=== PATIENT | male | born 1940 | race Caucasian/White ===

== ENCOUNTER 2021-09-15 15:00 | Observation (INO) | payer MEDICARE, BC ==
[2021-09-15] MEDS ORDERED: Aspirin 81 MG Tab.Chew PO ONE (15:15)
[2021-09-15] MEDS ORDERED: Nitroglycerin 0.4 MG Tab.SL SL ONE (15:18)
[2021-09-15 15:55] LABS: CHLORIDE,CL 98 mmol/L (98-107); SODIUM,NA 135 mmol/L (136-145)
[2021-09-15 16:13] LABS: ANION GAP 13.7 meq/L (7-15)
[2021-09-15] MEDS ORDERED: Iopamidol 755 Mg/ML 100 ML Bottle IVPUSH ONE (16:13)
[2021-09-15] MEDS ORDERED: Lidocaine 2% HCl 11 ML Jelly Filled Syringe ONE ×2 (17:58→18:10)
[2021-09-15] MEDS ORDERED: Acetaminophen 325 MG Tab PO PRN (18:11)
[2021-09-15] MEDS ORDERED: Furosemide 40 MG/4 ML VIAL IVPUSH ONE (18:12)
[2021-09-15] MEDS ORDERED: cefTRIAXone 1 GM in Sodium Chloride 0.9% 100 ML IV SCH (20:00)
[2021-09-15] MEDS: Apixaban 5 MG Tab PO SCH (20:20)
[2021-09-15] MEDS: Sodium Chloride 0.9% 10 ML Syringe FLUSH PRN ×3 (20:20→21:46)
[2021-09-15] MEDS ORDERED: Digoxin 250 MCG Tab PO ONE (20:34)
[2021-09-15] MEDS ORDERED: Azithromycin 500 MG in Sodium Chloride 0.9% 250 ML IV SCH (21:00)
[2021-09-16] MEDS ORDERED: Furosemide 40 MG/4 ML VIAL IVPUSH ONE ×2 (01:00→01:33)
[2021-09-16] MEDS ORDERED: Diltiazem IR 60 MG Tab PO ONE (01:23)
[2021-09-16] MEDS: Sodium Chloride 0.9% 10 ML Syringe FLUSH PRN ×2 (01:44→09:21)
[2021-09-16] MEDS: Apixaban 5 MG Tab PO SCH (07:30)
[2021-09-16 07:45] LABS: CHLORIDE,CL 97 mmol/L (98-107); SODIUM,NA 136 mmol/L (136-145)
[2021-09-16 07:47] LABS: ANION GAP 12.9 meq/L (7-15)
[2021-09-16] MEDS ORDERED: Lisinopril 5 MG Tab PO SCH (08:00)
[2021-09-16] MEDS ORDERED: Verapamil 120 MG Tab.ER PO SCH (08:00)
[2021-09-16] MEDS ORDERED: Fluticasone NASAL Spray 16 GM Bottle NASBOTH SCH (08:00)
[2021-09-16] MEDS ORDERED: Furosemide 20 MG/2 ML VIAL IVPUSH ONE ×2 (08:00→09:00)
[2021-09-16] MEDS ORDERED: Rivaroxaban 10 MG Tab PO SCH (18:00)
== END 2021-09-16 16:40 ==
LOC: LL.ED 15:00 → LL.MS 17:29
PROVIDERS: ADMIT Emergency Medicine; ATTEND Emergency Medicine
DX: R07.89 Other chest pain (principal); I11.0 Hypertensive heart disease with heart failure; M19.90 Unspecified osteoarthritis, unspecified site; G89.29 Other chronic pain; J98.11 Atelectasis; F32.A Depression, unspecified; I48.0 Paroxysmal atrial fibrillation; J96.01 Acute respiratory failure with hypoxia; M54.50 Low back pain, unspecified; J30.9 Allergic rhinitis, unspecified; I73.9 Peripheral vascular disease, unspecified; C61 Malignant neoplasm of prostate; E66.01 Morbid (severe) obesity due to excess calories; I50.43 Acute on chronic combined systolic (congestive) and diastolic (congestive) heart failure; Z88.8 Allergy status to other drugs, medicaments and biological substances; Z79.899 Other long term (current) drug therapy; Z87.891 Personal history of nicotine dependence; Z68.41 Body mass index [BMI] 40.0-44.9, adult
CPT/HCPCS: 36415; 51702; 71045; 71275; 80048; 80053; 80162; 81001; 81003; 83605; 83735; 83880; 84484; 85025; 85379; 85610; 87086; 87186; 93005; 93010; 96365; 96368; 96375; 96376; 99217; 99220; 99285-25; A9270-GY; G0378; J0456; J0696; J1940; J3490; J7050; Q9967

== ENCOUNTER 2023-01-03 15:03 | Emergency (ER) | payer MEDICARE, BC ==
[2023-01-03] MEDS ORDERED: Sodium Chloride 0.9% 10 ML Syringe FLUSH PRN (15:08)
[2023-01-03 15:44] LABS: BASOPHILS ABSOLUTE AUTO 0.02 K/uL (0.00-0.20); BASOPHILS PERCENT AUTO 0.2 % (0.0-2.0); EOSINOPHILS ABSOLUTE AUTO 0.01 K/uL (0.00-0.50); EOSINOPHILS PERCENT AUTO 0.1 % (0.0-5.0); HEMATOCRIT 28.9 % (39.0-49.0); HEMOGLOBIN 8.7 g/dL (13.1-16.8); LYMPHOCYTES ABSOLUTE AUTO 1.13 K/uL (0.50-3.50); LYMPHOCYTES PERCENT AUTO 13.2 % (10.0-50.0); MEAN CORPUSCULAR HEMOGLOBIN 30.4 pg (28.2-33.3); MEAN CORPUSCULAR HGB CONC 30.1 g/dL (31.7-36.0); MONOCYTES ABSOLUTE AUTO 0.68 K/uL (0.00-1.00); MONOCYTES PERCENT AUTO 7.9 % (2.0-14.0); NEUTROPHILS ABSOLUTE AUTO 6.73 K/uL (1.40-7.00); NEUTROPHILS PERCENT AUTO 78.6 % (45.0-80.0); PLATELET COUNT,PLT 229 K/uL (150-350); RED BLOOD CELL COUNT 2.86 M/uL (4.33-5.41); RED CELL DISTRIBUTION WIDTH 14.3 % (11.2-14.1); WHITE BLOOD CELL COUNT,WBC 8.6 K/uL (4.0-10.2)
[2023-01-03 16:14] LABS: ALANINE AMINOTRANSFERASE,ALT 18 U/L (12-78); ALBUMIN 3.5 g/dL (3.4-5.0); ALKALINE PHOSPHATASE 77 IU/L (46-116); ASPARTATE AMNIOTRANSFERASE,AST 20 U/L (15-37); BILIRUBIN TOTAL 0.4 mg/dL (0.2-1.0); BLOOD UREA NITROGEN,BUN 78 mg/dL (7-18); CARBON DIOXIDE,CO2 36.8 mmol/L (21.0-32.0); CHLORIDE,CL 102 mmol/L (98-107); CREATININE 1.66 mg/dL (0.51-1.17); GLUCOSE RANDOM 117 mg/dL (70-99); MAGNESIUM 2.5 mg/dL (1.8-2.4); POTASSIUM,K 5.4 mmol/L (3.5-5.1); PRO B-TYPE NATRIUR PEPT,BNPPRO 255 pg/mL (0-125); PROTEIN TOTAL,TP 6.6 g/dL (6.4-8.2); SODIUM,NA 143 mmol/L (136-145)
[2023-01-03 16:23] LABS: ANION GAP 9.6 meq/L (7-15); ESTIMATED GFR 41 mL/min (>=60)
[2023-01-03 16:43] LABS: CORONAVIRUS COVID-19 NAA NEGATIVE (NEGATIVE); INFLUENZA A NAA NEGATIVE (NEGATIVE); INFLUENZA B NAA NEGATIVE (NEGATIVE); RESPIRATORY SYNCYTIAL VIR NAA NEGATIVE (NEGATIVE)
[2023-01-03 17:28] LABS: COLOR,URINE YELLOW (YELLOW)
[2023-01-03 17:29] LABS: APPEARANCE,URINE CLOUDY (CLEAR); BILIRUBIN,URINE NEGATIVE (NEGATIVE); GLUCOSE,URINE NEGATIVE (NEGATIVE); KETONES,URINE NEGATIVE (NEGATIVE); LEUKOCYTE ESTERASE,URINE LARGE (NEGATIVE); NITRITE,URINE NEGATIVE (NEGATIVE); OCCULT BLOOD,URINE MODERATE (NEGATIVE); PROTEIN,URINE TRACE mg/dL (NEGATIVE); UROBILINOGEN,URINE 0.2 E.U./dL (0.2-1.0)
[2023-01-03 17:30] LABS: BACTERIA,URINE MANY /HPF (NONE TO FEW); EPITHELIAL CELLS,URINE RARE /LPF; MUCUS,URINE RARE /LPF (NEGATIVE); WBC,URINE >100 /HPF
[2023-01-03] MEDS: Sodium Chloride 0.9% 500 ML IV SCH ×2 (19:01→20:19)
[2023-01-03] MEDS: cefTRIAXone 1 GM in Sodium Chloride 0.9% 100 ML IV ONE (19:01)
[2023-01-03 21:54] LABS: CALCIUM 9.8 mg/dL (8.5-10.1); CARBON DIOXIDE,CO2 32.9 mmol/L (21.0-32.0); CREATININE 1.55 mg/dL (0.51-1.17); EST CRCL DRUG DOSING (CG) 40.81 mL/min; POTASSIUM,K 5.1 mmol/L (3.5-5.1)
[2023-01-03 21:55] LABS: ANION GAP 11.2 meq/L (7-15)
== END 2023-01-03 23:00 ==
LOC: LL.ED 15:03 → SUPCPDRO 15:03 → LL.ED 23:00
DX: N39.0 Urinary tract infection, site not specified (principal); N17.9 Acute kidney failure, unspecified; K92.1 Melena; I10 Essential (primary) hypertension; Z88.8 Allergy status to other drugs, medicaments and biological substances; Z79.899 Other long term (current) drug therapy; Z20.822 Contact with and (suspected) exposure to COVID-19; Z16.12 Extended spectrum beta lactamase (ESBL) resistance
CPT/HCPCS: 0241U; 36415; 71045; 80048; 80053; 81001; 82272; 83605; 83735; 83880; 84484; 85025; 85379; 87040; 87086; 93005; 96361; 96365; 96367; 99285; J0696; J1580; J3490; J7040; 87088; 93010; 99284